=== PATIENT | male | born 1985 | race African-American/Black ===

== ENCOUNTER 2021-05-13 17:49 | Emergency (ER) | payer OTHER ==
[~2021-05-13] VITALS: Ht 170.2 cm; Wt 126.1 kg
[~2021-05-13 17:49] MED LIST: AVELOX ABC PAC400 MG
[2021-05-13] MEDS ORDERED: ADVIL (18:44)
[2021-05-13] MEDS ORDERED: MEDROLPACK PO (22:37)
[2021-05-13] MEDS ORDERED: PEPCID AC20 MG PO (22:37)
== END 2021-05-13 22:40 | disposition home or self-care (01) ==
LOC: ER 17:49
DX: R59.0 Localized enlarged lymph nodes (principal); R13.10 Dysphagia, unspecified; R06.02 Shortness of breath; Z03.818 Encounter for observation for suspected exposure to other biological agents ruled out

== ENCOUNTER → 2021-05-17 | Emergency (ER) | payer OTHER ==
[~2021-05-17] VITALS: Ht 172.7 cm; Wt 127.0 kg
[~2021-05-17] MED LIST changes: +ADVIL; +MEDROLPACK PO; +PEPCID AC20 MG PO
== END | disposition home or self-care (01) ==
LOC: ER 22:34
DX: L04.0 Acute lymphadenitis of face, head and neck (principal); R13.19 Other dysphagia

== ENCOUNTER 2021-08-16 04:53 | Emergency (ER) | payer OTHER ==
[~2021-08-16] VITALS: Ht 170.2 cm; Wt 122.5 kg
[2021-08-16] MEDS ORDERED: MONODOX100 MG PO (12:01)
[2021-08-16] MEDS ORDERED: KETO10TA2 PO (12:01)
== END 2021-08-16 12:20 | disposition home or self-care (01) ==
LOC: ER 04:53
DX: N50.811 Right testicular pain (principal); N45.3 Epididymo-orchitis; N50.82 Scrotal pain

== ENCOUNTER 2024-08-13 18:17 | Emergency (ER) | payer OTHER ==
[~2024-08-13] VITALS: Ht 170.2 cm; Wt 116.1 kg
[~2024-08-13 18:17] MED LIST changes: +KETO10TA2 PO; +MONODOX100 MG PO
[2024-08-13] MEDS ORDERED: PRILOSEC OTC20 MG (18:47)
[2024-08-13] MEDS ORDERED: DEXAMETHASONE SODIUM PHOSPHATE 4 MG/ML VIAL IM STA (19:28)
[2024-08-13] MEDS ORDERED: ORPHENADRINE CITRATE 30 MG/ML AMPUL IM STA (19:29)
[2024-08-13] MEDS ORDERED: KETOROLAC TROMETHAMINE 60 MG VIAL IM STA (19:30)
== END 2024-08-13 21:19 | disposition home or self-care (01) ==
LOC: ER 18:19
DX: R13.10 Dysphagia, unspecified (principal); Z91.013 Allergy to seafood; Z88.8 Allergy status to other drugs, medicaments and biological substances

== ENCOUNTER 2024-08-22 08:19 | Outpatient (CLI) | payer OTHER ==
[~2024-08-22 08:19] MED LIST changes: +PRILOSEC OTC20 MG
[2024-08-22 09:51] LABS: HEMATOCRIT 41.2 % (39.0-48.0); HEMOGLOBIN 13.9 g/dL (13-16.00); MEAN CELL VOLUME 83.7 fL (80.0-100.00); MEAN CORPUSCULAR HEMOGLOBIN 28.3 pg (27.00-32.0); MEAN CORPUSCULAR HGB CONC 33.8 g/dl (32.0-36.0); PLATELET COUNT 306 K/uL (150-450); RED BLOOD COUNT 4.92 M/uL (4.00-6.00); RED CELL DISTRIBUTION WIDTH 15.6 % (11.5-14.5)
[2024-08-22 11:24] LABS: ALBUMIN 3.4 gm/dL (3.4-5.0); BILIRUBIN TOTAL 0.54 mg/dL (0.3-1.2); CALCIUM 9.6 mg/dL (8.5-10.1); CREATININE SERUM 0.81 mg/dL (0.70-1.30); GFR 106.65; GLOBULINA 3.5 G/DL (2.4-3.5); POTASSIUM 4.34 mEq/L (3.5-5.1); TOTAL PROTEIN 6.9 gm/dL (6.4-8.2); TSH 1.3 uIU/mL (0.358-3.74)
[2024-08-22 11:25] LABS: T4 FREE 1.79 NG/ML (0.76-1.46)
== END 2024-08-22 08:26 | disposition home or self-care (01) ==
LOC: LAB 08:19
DX: R13.10 Dysphagia, unspecified (principal); R22.1 Localized swelling, mass and lump, neck

== ENCOUNTER 2024-08-27 08:36 | Day surgery (SDC) | payer OTHER ==
[2024-08-27] MEDS ORDERED: DIPHENHYDRAMINE HCL 50 MG/ML VIAL 1ML IV ONE (11:00)
[2024-08-27] MEDS ORDERED: fentaNYL CITRATE 50 MCG/ML AMPUL IV PUSH ONE (11:00)
[2024-08-27] MEDS ORDERED: MIDAZOLAM HCL 2 MG/2 ML VIAL IV ONE (11:00)
== END 2024-08-27 11:50 | disposition home or self-care (01) ==
LOC: AMB-ENDOS 08:36 → ADM 08:36 → AMB-ENDOS 11:50 → CIR.AMB 15:30
PROVIDERS: ATTEND Internal Medicine
DX: R13.19 Other dysphagia (principal); K20.80 Other esophagitis without bleeding; K21.9 Gastro-esophageal reflux disease without esophagitis; Z91.041 Radiographic dye allergy status

== ENCOUNTER 2024-08-31 07:39 | Outpatient (CLI) | payer OTHER | END 2024-08-31 07:45 | disposition home or self-care (01) | LOC: TOM 07:39 | PROVIDERS: ATTEND Internal Medicine | DX: R13.10 Dysphagia, unspecified (principal); R22.1 Localized swelling, mass and lump, neck ==

== ENCOUNTER → 2024-09-09 07:14 | Outpatient (CLI) | payer OTHER ==
[2024-09-11 10:06] LABS: hav igm Negative (Negative); hcv Non Reactive (Non Reactive); hep b c Negative (Negative); hep b s ag Negative (Negative)
[2024-09-11 12:11] LABS: vca igm ab < 36.0 U/mL (0.0-35.9)
== END | disposition home or self-care (01) ==
LOC: LAB 07:14
PROVIDERS: ATTEND General Practice
DX: R13.10 Dysphagia, unspecified (principal); E66.9 Obesity, unspecified

== ENCOUNTER 2024-09-10 15:32 | Outpatient (CLI) | payer OTHER | END 2024-09-10 15:39 | disposition home or self-care (01) | LOC: SONOGRAMA 15:32 | PROVIDERS: ATTEND Internal Medicine Endocrinology, Diabetes & Metabolism | DX: E04.8 Other specified nontoxic goiter (principal) ==